=== PATIENT | female | born 1965 | race African-American/Black ===

== ENCOUNTER 2018-09-01 00:33 | Inpatient (IN) | payer OTHER ==
[2018-09-01 01:34] LABS: Absolute Lymphocytes (CBC) 2.7 K/uL (0.7-4.9); Absolute Monocytes 0.9 K/uL (0.1-1.3); Absolute Neutrophil 5.8 K/uL (1.8-8.0); Basophils % 0.4 % (0-1.3); Eosinophils % 1.4 % (0-4.4); Hematocrit 30.4 % (36.0-45.0); Lymphocytes % 28.4 % (15.3-44.8); Monocytes % 9.3 % (3.3-12.3); RBC Red Blood Cell Count 3.67 M/uL (3.86-4.86)
[2018-09-01 02:14] LABS: ALT/SGPT 20 U/L (12-78); AST/SGOT 33 U/L (15-37); Albumin 2.7 g/dL (3.4-5.0); Alkaline Phosphatase 56 U/L (45-117); BUN Blood Urea Nitrogen 17 mg/dL (7-18); Bicarbonate 30 mmol/L (21-32); Bilirubin Direct < 0.1 mg/dL (0-0.2); Bilirubin Total 0.2 mg/dL (0.2-1.0); Glucose Level 131 mg/dL (74-106); Protein, Total 9.7 g/dL (6.4-8.2); Sodium Level 139 mmol/L (136-145)
[2018-09-01 02:15] LABS: Magnesium 1.4 mg/dL (1.8-2.4); Potassium 2.5 mmol/L (3.5-5.1)
[2018-09-01] MEDS ORDERED: POTASSIUM 25 MEQ EFFERV TAB ONE (02:32)
[2018-09-01] MEDS ORDERED: NA CHLORIDE 0.9% 500 ML ONE (02:32)
[2018-09-01] MEDS ORDERED: MAGNESIUM SULFATE 1 gm IVPB 1 GM/100 ML BAG IV ONE ×2 (02:32→09:19)
[2018-09-01] MEDS ORDERED: KCL 20 MEQ/100 mL IVPB 20 MEQ/100 ML BAG IV ONE (02:33)
--- NOTE | 2018-09-01 02:41 | ER ---
Nurse's Notes [facility] Name: Denise Bardales Age: 53 yrs Sex: Female : 1965 Arrival Date: 09/01/2018 Time: 00:42 Bed 5 Private MD: Diagnosis: Hypomagnesemia;Hypokalemia Presentation: 09/01 00:49 Presenting complaint: Patient states: had routine blood work today and was notified she bb needed to go to the ED for low potassium it was 2.6. Pt also states she has been having palpitations and diarrhea for some time. Transition of care: patient was not received from another setting of care. Onset of symptoms was September 01, 2018. Risk Assessment: Do you want to hurt yourself or someone else? Patient reports no desire to harm self or others. Initial Sepsis Screen: Does the patient meet any 2 criteria? No. Patient's initial sepsis screen is negative. Does the patient have a suspected source of infection? No. Patient's initial sepsis screen is negative. Care prior to arrival: None. 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 - Social history:: Smoking status: Patient/guardian denies using tobacco. - Ebola Screening: : No symptoms or risks identified at this time. Screenin:05 Abuse screen: Denies threats or abuse. Denies injuries from another. Nutritional ed1 screening: No deficits noted. Tuberculosis screening: No symptoms or risk factors identified. Fall Risk None identified. Assessment: 02:05 General: Appears in no apparent distress. Behavior is calm, cooperative, Pt states "My ed1 doctors office called me late this evening and said I needed to go to the ER because my potassium level was low.". Pain: Denies pain. Neuro: Level of Consciousness is awake, alert, obeys commands, Oriented to person, place, time, situation. Cardiovascular: Denies chest pain, Heart tones S1 S2 present. Respiratory: Airway is patent Respiratory effort is even, unlabored, Respiratory pattern is regular, symmetrical, Breath sounds are clear bilaterally. Denies cough, shortness of breath. GI: No signs and/or symptoms were reported involving the gastrointestinal system. : No signs and/or symptoms were reported regarding the genitourinary system. EENT: No signs and/or symptoms were reported regarding the EENT system. Derm: Skin is intact, is healthy with good turgor, Skin is dry, Skin is normal, Skin temperature is warm. Musculoskeletal: Circulation, motion, and sensation intact. Range of motion: intact in all extremities. 03:36 Reassessment: Patient appears in no apparent distress at this time. No changes from ed1 previously documented assessment. Patient and/or family updated on plan of care and expected duration. Pain level reassessed. Patient is alert, oriented x 3, equal unlabored respirations, skin warm/dry/pink. Patient denies pain at this time. Vital Signs: 00:54 BP 184 / 91; Pulse 108; Resp 18 S; Temp 98.9(O); Pulse Ox 99% on R/A; Weight 117.93 kg bb (R); Height 5 ft. 2 in. (157.48 cm) (R); Pain 0/10; 03:36 BP 153 / 81; Pulse 90; Resp 16; Temp 98.4(O); Pulse Ox 97% on R/A; Pain 0/10; ed1 00:54 Body Mass Index 47.55 (117.93 kg, 157.48 cm) bb ED Course: 00:42 Patient arrived in ED. es 00:46 Jacqui Alves FNP-C is PHCP. snw 00:47 Jayde Tomlin MD is Attending Physician. snw 00:51 Triage completed. bb 00:54 Arm band placed on Patient placed in an exam room, on a stretcher. bb 01:07 Eileen Wayne, TANMAY is Primary Nurse. ed1 02:05 Patient has correct armband on for positive identification. Placed in gown. Bed in low ed1 position. Call light in reach. 02:05 Initial lab(s) drawn, by me, sent to lab. Inserted saline lock: 22 gauge in left ed1 antecubital area, using aseptic technique. Blood collected. 02:39 Vj Ashley MD is Hospitalizing Provider. snw 03:47 No provider procedures requiring assistance completed. Patient admitted, IV remains in ed1 place. intact, No redness/swelling at site. Administered Medications: 02:43 Drug: NS 0.9% 500 ml Route: IV; Rate: bolus; Site: left antecubital; ed1 03:46 Follow up: IV Status: Infusion continued upon admission ed1 02:44 Drug: Magnesium Sulfate 1 grams Route: IVPB; Infused Over: 1 hrs; Site: left ed1 antecubital; 03:33 Follow up: Response: No adverse reaction; IV Status: Completed infusion; IV Intake: [id number] 02:44 Drug: Potassium Effervescent Tablet 50 mEq Route: PO; ed1 03:33 Follow up: Response: No adverse reaction ed1 02:44 Drug: Potassium Chloride 20 mEq Route: IV; Rate: calculated rate; Site: left ed1 antecubital; 03:47 Follow up: IV Status: Infusion continued upon admission ed1 Intake: 03:33 IV: 50ml; Total: 50ml. ed1 Outcome: 02:39 Decision to Hospitalize by Provider. snw 03:48 Admitted to Tele accompanied by tech, via wheelchair, with chart, Report called to ed1 TANMAY Bello 03:48 Condition: stable 03:48 Discharge instructions given to patient, Instructed on the need for admit, Demonstrated understanding of instructions. 03:48 Patient left the ED. ed1 Signatures: Jacqiu Alves, LOCATION AND MEASUREMENT TECHNICIAN-C LOCATION AND MEASUREMENT TECHNICIAN-Csnw Christi Lujan Brenda, RN RN Eileen Pastor RN RN ed1
--- NOTE | 2018-09-01 02:41 | EDPHYS ---
Physician Documentation [facility] Name: Denise Bardales Age: 53 yrs Sex: Female : 1965 Arrival Date: 09/01/2018 Time: 00:42 Bed 5 Private MD: ED Physician Jayde Tomlin HPI: 09/01 01:05 This 53 yrs old Black Female presents to ER via Ambulatory with complaints of Low K+. snw 01:05 Onset: The symptoms/episode began/occurred acutely. Associated signs and symptoms: snw Pertinent positives: diarrhea. Modifying factors: The patient symptoms are alleviated by nothing. It is unknown whether or not the patient has had similar symptoms in the past. The patient has been recently seen by a physician: the patient's primary care provider, routine bloodwork performed. Pt states she got a call to come to ED for potassium of 2.6. 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 - Social history:: Smoking status: Patient/guardian denies using tobacco. - Ebola Screening: : No symptoms or risks identified at this time. ROS: 01:05 Eyes: Negative for injury, pain, redness, and discharge, ENT: Negative for injury, snw pain, and discharge, Neck: Negative for injury, pain, and swelling, Cardiovascular: Negative for chest pain, palpitations, and edema, Respiratory: Negative for shortness of breath, cough, wheezing, and pleuritic chest pain. 01:05 Back: Negative for injury and pain, : Negative for injury, bleeding, discharge, and swelling, MS/Extremity: Negative for injury and deformity, Skin: Negative for injury, rash, and discoloration, Neuro: Negative for headache, weakness, numbness, tingling, and seizure. 01:05 Constitutional: Positive for body aches. 01:05 Abdomen/GI: Positive for diarrhea. Exam: 01:03 Constitutional: This is a well developed, obese patient who is awake, alert, and in no snw acute distress. Head/Face: Normocephalic, atraumatic. Eyes: Pupils equal round and reactive to light, extra-ocular motions intact. Lids and lashes normal. Conjunctiva and sclera are non-icteric and not injected. Cornea within normal limits. Periorbital areas with no swelling, redness, or edema. ENT: Nares patent. No nasal discharge, no septal abnormalities noted. Tympanic membranes are normal and external auditory canals are clear. Oropharynx with no redness, swelling, or masses, exudates, or evidence of obstruction, uvula midline. Mucous membranes moist. Neck: Trachea midline, no thyromegaly or masses palpated, and no cervical lymphadenopathy. Supple, full range of motion without nuchal rigidity, or vertebral point tenderness. No Meningismus. Chest/axilla: Normal chest wall appearance and motion. Nontender with no deformity. No lesions are appreciated. Cardiovascular: Regular rate and rhythm with a normal S1 and S2. No gallops, murmurs, or rubs. Normal PMI, no JVD. No pulse deficits. Respiratory: Lungs have equal breath sounds bilaterally, clear to auscultation and percussion. No rales, rhonchi or wheezes noted. No increased work of breathing, no retractions or nasal flaring. 01:03 Back: No spinal tenderness. No costovertebral tenderness. Full range of motion. Skin: Warm, dry with normal turgor. Normal color with no rashes, no lesions, and no evidence of cellulitis. MS/ Extremity: Pulses equal, no cyanosis. Neurovascular intact. Full, normal range of motion. Neuro: Awake and alert, GCS 15, oriented to person, place, time, and situation. Cranial nerves II-XII grossly intact. Motor strength 5/5 in all extremities. Sensory grossly intact. Cerebellar exam normal. Normal gait. Psych: Awake, alert, with orientation to person, place and time. Behavior, mood, and affect are within normal limits. 01:03 Abdomen/GI: Inspection: abdomen appears normal, Bowel sounds: normal, Palpation: abdomen is soft and non-tender. Vital Signs: 00:54 BP 184 / 91; Pulse 108; Resp 18 S; Temp 98.9(O); Pulse Ox 99% on R/A; Weight 117.93 kg bb (R); Height 5 ft. 2 in. (157.48 cm) (R); Pain 0/10; 03:36 BP 153 / 81; Pulse 90; Resp 16; Temp 98.4(O); Pulse Ox 97% on R/A; Pain 0/10; ed1 00:54 Body Mass Index 47.55 (117.93 kg, 157.48 cm) bb MDM: 00:58 Patient medically screened. snw 02:38 Data reviewed: vital signs, nurses notes. Data interpreted: Pulse oximetry: on room air snw is 99 %. Interpretation: normal. Counseling: I had a detailed discussion with the patient and/or guardian regarding: the historical points, exam findings, and any diagnostic results supporting the discharge/admit diagnosis, lab results, the need for further work-up and treatment in the hospital. Physician consultation: Vj Ashley MD was called at 02:38, was contacted at 02:38, regarding admission, to the telemetry unit. 02 00:54 Order name: Basic Metabolic Panel; Complete Time: 02:16 snw 09/01 00:54 Order name: CBC with Diff; Complete Time: 01:46 snw 09/01 00:54 Order name: Creatinine for Radiology; Complete Time: 01:51 snw 09/01 00:54 Order name: Hepatic Function; Complete Time: 02:16 snw 09/01 00:54 Order name: Magnesium; Complete Time: 02:16 snw 09/01 00:54 Order name: IV Saline Lock; Complete Time: 02:00 snw 09/01 00:54 Order name: Labs collected and sent; Complete Time: 02:00 snw 09/01 00:58 Order name: EKG; Complete Time: 00:59 snw 09/01 00:58 Order name: EKG - Nurse/Tech; Complete Time: 01:59 snw Administered Medications: 02:43 Drug: NS 0.9% 500 ml Route: IV; Rate: bolus; Site: left antecubital; ed1 03:46 Follow up: IV Status: Infusion continued upon admission ed1 02:44 Drug: Magnesium Sulfate 1 grams Route: IVPB; Infused Over: 1 hrs; Site: left ed1 antecubital; 03:33 Follow up: Response: No adverse reaction; IV Status: Completed infusion; IV Intake: [id number] 02:44 Drug: Potassium Effervescent Tablet 50 mEq Route: PO; ed1 03:33 Follow up: Response: No adverse reaction ed1 02:44 Drug: Potassium Chloride 20 mEq Route: IV; Rate: calculated rate; Site: left ed1 antecubital; 03:47 Follow up: IV Status: Infusion continued upon admission ed1 Disposition: 09/01/18 02:39 Hospitalization ordered by Vj Ashley for Observation. Preliminary diagnosis are Hypomagnesemia, Hypokalemia. - Bed requested for Telemetry/MedSurg (observation). - Status is Observation. ed1 - Condition is Stable. - Problem is new. - Symptoms are unchanged. UTI on Admission? No Addendum: 09/07/2018 22:50 Co-signature as Attending Physician, Jayde Tomlin MD. m a2 Signatures: Dispatcher [employer] EDMT Jacqui Alves, CONTRACT ATTORNEY-C CONTRACT ATTORNEY-Csnw Chiquita Patterson RN RN bb Eileen Wayne RN RN ed1 Jayde Tomlin MD MD tx2 Corrections: (The following items were deleted from the chart) 09/01 01:59 00:54 IV Saline Lock ordered. w ed1 02:43 02:39 Hospitalization Ordered by Vj Ashley MD for Observation. Preliminary bb diagnosis is Hypomagnesemia; Hypokalemia. Bed requested for Telemetry/MedSurg (observation). Status is Observation. Condition is Stable. Problem is new. Symptoms are unchanged. UTI on Admission? No. snw 03:48 02:43 09/01/2018 02:39 Hospitalization Ordered by Vj Ashley MD for Observation. ed1 Preliminary diagnosis is Hypomagnesemia; Hypokalemia. Bed requested for Telemetry/MedSurg (observation). Status is Observation. Condition is Stable. Problem is new. Symptoms are unchanged. UTI on Admission? No. bb
--- NOTE | 2018-09-01 02:48 | P.HP ---
Certification for Inpatient Patient admitted to: Observation With expected LOS: <2 Midnights Practitioner: I am a practitioner with admitting privileges, knowledge of patient current condition, hospital course, and medical plan of care. Services: Services provided to patient in accordance with Admission requirements found in Title 42 Section 412.3 of the Code of Federal Regulations Patient History Date of Service: 09/01/18 Reason for admission: hypokalemia History of Present Illness: Ms Bardales is a 53 years old woman with history of DM II, CKD, HTN, who is followed up by Dr Suarez. She had a lab work done recently, and today she was called by Dr Suarez because his potassium and magnesium were low. The patient states that has had diarrhea and palpitations for a few month already. She also believe that diarrhea is a side effect of metformin. She denied fever, chills, abdominal pain, nausea or vomiting. Lab work remarkable for potassium level 2.5 , Magnesium 1.4, Creatinine 1.58. She denied chest pain or SOB. Allergies aspirin Adverse Reaction (Intermediate, Verified 05/02/12 20:57) Nausea/Vomiting Home medications list reviewed: Yes Home Medications: Amlodipine [Norvasc*] 5 mg PO DAILY 10/13/13 Carvedilol [Coreg*] 25 mg PO BID 10/13/13 Clonidine HCl [Catapres*] 0.2 mg PO TID 10/13/13 Lisinopril/Hydrochlorothiazide [Zestoretic 20-12.5 mg Tablet] 1 each PO BID 08/27 Ciprofloxacin HCl [Cipro 250 MG Tablet*] 250 mg PO BID #10 tab 10/15/13 Insulin Detemir [Levemir*] 20 units SQ BIDWM #0 ml 10/15/13 Simvastatin [Zocor*] 20 mg PO BEDTIME #30 tablet 10/15/13 Sucralfate [Carafate*] 1 gm GT QID #0 ucup 10/15/13 - Past Medical/Surgical History Diabetic: No -: HTN -: left eye keratoconus -: anxiety -: CKD Past Surgical History: Reviewed- Non-Contributory - Family History Family History: Reviewed- Non-Contributory - Social History Smoking Status: Former smoker Alcohol use: No CD- Drugs: No Caffeine use: No Place of Residence: Home Review of Systems 10-point ROS is otherwise unremarkable Physical Examination - Physical Exam General: Alert, In no apparent distress HEENT: Atraumatic, PERRLA, Mucous membr. moist/pink, EOMI, Sclerae nonicteric Neck: Supple, 2+ carotid pulse no bruit, No LAD, Without JVD or thyroid abnormality Respiratory: Clear to auscultation bilaterally, Normal air movement Cardiovascular: Regular rate/rhythm, Normal S1 S2 Gastrointestinal: Normal bowel sounds, No tenderness Musculoskeletal: No tenderness Integumentary: No rashes Neurological: Normal gait, Normal speech, Normal strength at 5/5 x4 extr, Normal tone, Normal affect Lymphatics: No axilla or inguinal lymphadenopathy - Studies Laboratory Data (last 24 hrs) 09/01/18 01:20: Creatinine 1.58 H 09/01/18 01:20: WBC 9.6, Hgb 10.1 L, Hct 30.4 L, Plt Count 525 H 09/01/18 01:20: Sodium 139, Potassium 2.5 L*, BUN 17, Creatinine 1.54 H, Glucose 131 H, Magnesium 1.4 L*, Total Bilirubin 0.2, AST 33, ALT 20, Alkaline Phosphatase 56 Assessment and Plan - Problems (Diagnosis) (1) Hypokalemia Current Visit: Yes Status: Acute (2) Hypomagnesemia Current Visit: Yes Status: Acute (3) Acute kidney injury superimposed on CKD Current Visit: Yes Status: Acute (4) Diabetes mellitus Current Visit: Yes Status: Acute Qualifiers: Diabetes mellitus type: type 2 Diabetes mellitus jail insulin use: with jail use Diabetes mellitus complication status: with kidney complications Diabetes mellitus complication detail: with chronic kidney disease Chronic kidney disease stage: stage 3 (moderate) Qualified Code(s): E11.22 - Type 2 diabetes mellitus with diabetic chronic kidney disease; N18.3 - Chronic kidney disease, stage 3 (moderate); Z79.4 - USP (current) use of insulin - Plan The patient will be admitted to the hospital under observation in order to replace electrolyte. Will continue patassium and magnesium infusion by protocol. - Advance Directives Does patient have a Living Will: No Does patient have a Durable POA for Healthcare: No - Code Status/Comfort Care Code Status Assessed: Yes Code Status: Full Code
[2018-09-01] MEDS ORDERED: ONDANSETRON 4 MG/2 ML VIAL IV PRN (04:29)
[2018-09-01] MEDS: NA CHLORIDE 0.9% 1,000 ML IV SCH ×2 (06:08→14:29)
[2018-09-01 06:23] VITALS: BMI 43.9
[2018-09-01] MEDS: INSULIN -REGULAR HUMAN 50 UNIT/0.5 ML ML SQ SCH ×4 (07:30→21:00)
[2018-09-01 08:37] LABS: Magnesium 1.8 mg/dL (1.8-2.4)
[2018-09-01 08:39] LABS: Potassium 2.9 mmol/L (3.5-5.1)
--- NOTE | 2018-09-01 08:47 | EKG ---
Test Date: 2018-09-01 Test Time: 01:54:35 Primary Counselor: ROBERTA MEASUREMENT RESULTS: Intervals: Rate: 105 [place]: 184 QRSD: 98 QT: 358 QTc: 473 [place]: P: 51 [place]: 184 QRS: 7 T: 72 INTERPRETIVE STATEMENTS: Sinus tachycardia Nonspecific T wave abnormality Abnormal ECG Compared to ECG 10/13/2013 15:15:57 T-wave abnormality now present Sinus rhythm no longer present ST (T wave) deviation no longer present Possible ischemia no longer present Prolonged QT interval no longer present Electronically Signed On 09-01-18 08:45:54 CONTRACTING OFFICER by Francois Crews
[2018-09-01 09:00] LABS: Potassium 2.9 mmol/L (3.5-5.1)
[2018-09-01] MEDS: FOLIC ACID 1 MG TABLET PO SCH (09:00)
[2018-09-01] MEDS: KCL 20 MEQ/100 mL IVPB 20 MEQ/100 ML BAG IV SCH ×3 (09:39→13:39)
[2018-09-01] MEDS: ENOXAPARIN 40 MG/0.4 ML SQ SCH (09:40)
[2018-09-01] MEDS: AMLODIPINE 10 MG TAB PO SCH (10:14)
[2018-09-01] MEDS: LISINOPRIL 20 MG TAB PO SCH (10:15)
[2018-09-01 10:28] VITALS: O2SAT 98
--- NOTE | 2018-09-01 15:49 | P.PN ---
Subjective Date of Service: 09/01/18 Primary Care Provider: Nephrology-Dr. Suarez Chief Complaint: hypokalemia Subjective: Improving, Doing well Physical Examination - Vital Signs Temperature: 97.1 F Blood Pressure: 159/82 Pulse: 86 Respirations: 18 Pulse Ox (%): 99 - Physical Exam General: Alert, In no apparent distress, Oriented x3, Cooperative HEENT: Atraumatic Neck: Supple Respiratory: Clear to auscultation bilaterally, Normal air movement Cardiovascular: Normal pulses, Regular rate/rhythm Gastrointestinal: Normal bowel sounds, Soft and benign, Non-distended Neurological: Normal speech, Normal strength at 5/5 x4 extr, Normal tone, Normal affect - Studies Laboratory Data (last 24 hrs) 09/01/18 01:20: Creatinine 1.58 H 09/01/18 01:20: WBC 9.6, Hgb 10.1 L, Hct 30.4 L, Plt Count 525 H 09/01/18 01:20: Sodium 139, Potassium 2.5 L*, BUN 17, Creatinine 1.54 H, Glucose 131 H, Magnesium 1.4 L*, Total Bilirubin 0.2, AST 33, ALT 20, Alkaline Phosphatase 56 Medications List Reviewed: Yes Assessment & Plan Discharge Plan: Home Plan to discharge in: 24 Hours Physician Review Additional Text: Impression: Hypokalemia Hypomagnesia Diabetes mellitus type 2 Acute on chronic renal disease, stage III Hypertension Iron deficiency anemia Obesity, BMI 43 Plan: Hypokalemia: Potassium being replaced. Possible discharge later today if improved. This will need to be monitored closely by nephrology as an outpatient. Recommend to recheck lab-potassium in 1 week. Hypomagnesia: Magnesium being replaced. Possible discharge later today if improved. This will need to be monitored closely by nephrology as an outpatient. Recommend to recheck lab-magnesium in 1 week. Diabetes mellitus type 2: Patient with diabetes. Will recommend to discontinue metformin due to chronic renal disease. Patient may benefit with glimepiride at discharge. Acute on chronic renal disease, stage III: Stable. Nephrology consulted. Nephrology recommends to discontinue metformin at discharge. Recommend no further use of nonsteroidal anti-inflammatories medications will need to be renally dosed. Recommend to recheck lab-BMP in 1 week. Hypertension: Patient continues with medication. Iron deficiency anemia: Patient continues medication. Obesity, BMI 43: Lifestyle modification education provided. Time Spent Managing Pts Care (In Minutes): 55
[2018-09-01] MEDS: METFORMIN HCL 500 MG TAB PO SCH (16:05)
--- NOTE | 2018-09-01 19:48 | RAD REPORT ---
EXAM DESCRIPTION: CT - Stone Protocol - 09/01/2018 7:18 pm CLINICAL HISTORY: Abdominal pain. COMPARISON: November 2017 TECHNIQUE: Computed axial tomography of the abdomen pelvis was obtained without oral or IV contrast. Lack of IV and oral contrast limits evaluation of solid organs, bowel, and vessels. Coronal reformat adolfo images were obtained and reviewed. All CT scans are performed using dose optimization technique as appropriate and may include automated exposure control or mA/KV adjustment according to patient size. FINDINGS: The left kidney is enlarged containing multiple calcifications up to a 2.7 centimeters. Lo w density areas are scattered throughout the left kidney. Hydronephrosis is not noted. This is compat ible with Xanthogranulomatous pyelonephritis A 1 millimeter calculus is present at the left UVJ. A right renal calculus is not seen. Ureteral calculus is not visualized. A bladder calculus is not The liver, spleen, pancreas appear grossly normal. A small left adrenal adenoma. There is laxity of the anterior abdominal wall with diastases of the rectus abdominis muscles 11 centimeter mass abuts the uterine fundus. It contains calcification. The endometrial stripe is thi ckened. There is no evidence of diverticulitis. Mild abdominal lymphadenopathy present IMPRESSION: Left Xanthogranulomatous pyelonephritis 1 millimeter nonobstructing calculus left UVJ 11 centimeter mass which abuts the uterine fundus appears slightly enlarged compared to the prior exa m. Most likely represents a subserosal fibroid. Ultrasound is recommended
--- NOTE | 2018-09-01 19:51 | RAD REPORT ---
EXAM DESCRIPTION: US - Renal Ultrasound-Complete - 09/01/2018 7:16 pm CLINICAL HISTORY: . Abdominal pain COMPARISON: August 2017. FINDINGS: The right kidney measures 12 centimeters with a mildly increased echotexture. Hydronephros is is not present. The left kidney measures 13 centimeters. It contains multiple calculi. Hydronephrosis is not seen. Di ffuse hypoechoic areas are scattered throughout the left kidney. This is compatible with Xanthogranul omatous pyelonephritis No gross abnormality of bladder noted IMPRESSION: Left Xanthogranulomatous pyelonephritis Increased renal echotexture consistent with parenchymal disease
[2018-09-01] MEDS: ACETAMINOPHEN 500 MG TAB PO PRN (21:16)
[2018-09-01] MEDS: ATORVASTATIN 20 MG TAB PO SCH (21:19)
[2018-09-01 21:46] LABS: Phosphorus 2.1 mg/dL (2.5-4.9)
[2018-09-01 21:50] LABS: Urine Appearance CLOUDY; Urine Bilirubin NEGATIVE (NEG); Urine Blood 2+ (NEG); Urine Color YELLOW; Urine Glucose NEGATIVE (NEG); Urine Protein 3+ (NEG); Urine Specific Gravity 1.015 (1.005-1.030); Urine Urobilinogen 0.2 mg/dL (0.2-1.0)
[2018-09-01 21:58] LABS: Barbiturates NEGATIVE (NEGATIVE); Benzodiazepines NEGATIVE (NEGATIVE); Cocaine NEGATIVE (NEGATIVE); METHAMPHETAM NEGATIVE (NEGATIVE); Methadone NEGATIVE (NEGATIVE); Opiates NEGATIVE (NEGATIVE); Phencyclidine NEGATIVE (NEGATIVE); THC Cannibis NEGATIVE (NEGATIVE)
[2018-09-01 22:11] LABS: Urine Bacteria 20-50 /HPF (<20); Urine Culture Reflex Order REFLEXED; Urine Mucus 2+ /HPF (NONE SEEN)
--- NOTE | 2018-09-01 22:43 | CON ---
Date of Consultation: 09/01/2018 Chief Complaint: [id number] kidney injury. History Of Present Illness: The patient was found to have elevated BUN and creatinine. She has underlying chronic kidney disease stage 3. She was found to have severe hypokalemia, hypomagnesemia. Outpatient blood work was obtained and potassium level was 2.6. The patient was referred to emergency room for evaluation and treatment. The patient has history of chronic kidney disease stage 3. There is history of diabetic kidney disease, hypertensive kidney disease, previous history of kidney stones. The patient has moderately severe acute on chronic kidney injury. Creatinine level is 1.4 and BUN is 15. Previously, creatinine baseline was 1.13. The patient is treated with potassium replacement. Potassium level was 2.6 and improved to 2.9. The patient is receiving potassium supplement. The patient has diabetic kidney disease. Glucose was elevated up to 397. I discussed with the patient and with attending that she cannot take metformin in view of chronic kidney disease due to the risk of lactic acidosis. Review of Systems: Constitutional: Denies fever, chills. Eyes: Denies vision changes. Ears, Nose, Mouth, and Throat: Denies sore throat, earaches. Respiratory: Denies PND, orthopnea. Cardiovascular: Denies chest pain, palpitation. GI: Denies nausea, vomiting. : Denies dysuria, hematuria. Musculoskeletal: Denies muscle aches or joint swelling. All other systems reviewed and all are negative. Past Medical History: Hypertension, left eye Keratoconus, anxiety, chronic kidney disease stage 3, diabetes mellitus with renal manifestation, obesity, kidney stones, history of urinary tract infection, hyperlipidemia, peptic ulcer disease, reflux. History of renal cyst, kidney stone. The patient previously was evaluated for possible kidney mass. 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 She had CT scan done in 2018. There was no hydronephrosis. There was enlargement of the pyramids with large bulky calcification present up to 3.5 cm in size. No obstructing ureteral calculi. The patient was found to have a large exophytic fibroid and was previously referred to [facility]. The patient was found to have previously medullary sponge kidney type changes on CT scan with medullary nephrocalcinosis and was to follow up with [facility] [employer] to rule out malignancy although patient is noncompliant and since 2018 she has not come for followup. Social History: Denies tobacco, alcohol, or illicit drugs. Family History: No kidney disease in the family. Physical Examination: General: The patient is awake, alert, follows commands. Eyes: Anicteric sclerae. EOMI. Ears, Nose, Mouth, and Throat: Oral mucosa moist. No pallor. Neck: Supple. No JVD. No bruits. Lungs: Clear to auscultation bilaterally. Heart: S1, S2. Abdomen: Soft, benign, not tender. Extremities: No edema. Laboratory Data: Blood work showed sodium 140, potassium 2.9, chloride 104, CO2 of 32, BUN 15, creatinine 1.4, glucose 115, calcium 9.3. Impression And Plan: 1. Chronic kidney disease stage 3, diabetes mellitus with renal manifestation. Avoid metformin. I discussed case with the patient and attending. 2. Hypertension. Continue blood pressure medication. 3. Severe hypokalemia. The plan is to check renal ultrasound to rule out obstructive uropathy. Continue replacement. Check magnesium level and replace magnesium as needed. The patient may need workup for hypokalemia. 4. The patient has history of proteinuria. Continue workup for proteinuria with urine protein electrophoresis. 5. History of kidney stones. CT scan without contrast will be done to rule out active kidney stone. LANA/MARTIN Voice ID: [id number] Report ID: [id number] MTDD
[2018-09-02 04:42] LABS: Absolute Lymphocytes (CBC) 2.5 K/uL (0.7-4.9); Absolute Monocytes 0.7 K/uL (0.1-1.3); Absolute Neutrophil 4.9 K/uL (1.8-8.0); Basophils % 0.4 % (0-1.3); Eosinophils % 2.9 % (0-4.4); Hematocrit 27.1 % (36.0-45.0); Lymphocytes % 29.5 % (15.3-44.8); MPV 8.1 fL (7.6-11.3); Monocytes % 8.5 % (3.3-12.3); RBC Red Blood Cell Count 3.24 M/uL (3.86-4.86)
[2018-09-02 05:22] LABS: Potassium 2.7 mmol/L (3.5-5.1)
[2018-09-02] MEDS: KCL 20 MEQ/100 mL IVPB 20 MEQ/100 ML BAG IV SCH ×3 (06:04→12:53)
[2018-09-02] MEDS: INSULIN -REGULAR HUMAN 50 UNIT/0.5 ML ML SQ SCH ×4 (07:30→21:00)
[2018-09-02] MEDS: METFORMIN HCL 500 MG TAB PO SCH (08:04)
[2018-09-02] MEDS: AMLODIPINE 10 MG TAB PO SCH (08:06)
[2018-09-02] MEDS: FERROUS SULFATE 325 MG TAB PO SCH (08:06)
[2018-09-02] MEDS: LISINOPRIL 20 MG TAB PO SCH (08:06)
[2018-09-02] MEDS: ENOXAPARIN 40 MG/0.4 ML SQ SCH (08:07)
[2018-09-02] MEDS: FOLIC ACID 1 MG TABLET PO SCH (08:07)
[2018-09-02] MEDS: ACETAMINOPHEN 500 MG TAB PO PRN ×2 (08:56→23:04)
[2018-09-02] MEDS: CEFTRIAXONE/SWI 2gm 2 GM/20 ML SYR IV SCH (10:14)
[2018-09-02] MEDS ORDERED: FUROSEMIDE 40 MG/4 ML VIAL ONE (10:51)
--- NOTE | 2018-09-02 12:23 | RAD REPORT ---
EXAM DESCRIPTION: NM - Kidney Imag W/Flow Func Wop - 09/02/2018 11:53 am CLINICAL HISTORY: Left renal calculus. Renal failure COMPARISON: September 01, 2018 cat scan TECHNIQUE: 10.2 millicuries technetium MDP 3 administered intravenously. Perfusion, concentration an d excretion images of the kidneys obtained. 40 milligrams Lasix administered intravenously 10 minutes into the exam. FINDINGS: Left renal peak activity 9.7 minutes. Right renal peak activity 6.9 minutes. Left renal capital T 1/2 equals 11.3 minutes. Right renal capital T 1/2 equals 5.1 minute Left renal activity a 20 minutes equals 48%. Rght renal activity at 20 minutes equals 37% There is relatively symmetric perfusion to each kidney. The concentration of radiotracer within the l eft kidney is mildly diminished. Mildly delayed excretion left kidney. No hydronephrosis IMPRESSION: Mildly to moderately diminished function of the left kidney. No obstruction
[2018-09-02] MEDS: POTASSIUM 25 MEQ EFFERV TAB PO SCH ×2 (12:53→21:22)
--- NOTE | 2018-09-02 13:01 | RAD REPORT ---
EXAM DESCRIPTION: US - Pelvis Complete - 09/02/2018 12:47 pm CLINICAL HISTORY: evaluate 11 cm mass to the left side, pos. fibroid Pelvic pain. COMPARISON: [facility] Protocol dated 09/01/2018 FINDINGS: The patient refused transvaginal ultrasound significantly limits the study. The uterus measures 8.2 x 9.0 x 6.1 cm. Endometrial stripe measures 5 mm. A protuberant area is seen in the fundus of the uterus anteriorly measuring 3.6 x 4.0 x 3.2 cm which probably represents a subse charisse fibroid. Full details are limited on transabdominal ultrasound. No significant pelvic ascites. Neither ovary well seen likely due to bowel gas shadowing. IMPRESSION: The uterus appears enlarged with a protuberant region in the fundus as detailed, probabl y representing a fibroid. Full assessment is quite limited as the patient refused transvaginal ultras ound. Neither ovary is well seen due to bowel gas. No pelvic ascites.
--- NOTE | 2018-09-02 13:20 | CON ---
History Of Present Illness: A 53-year-old lady with history of diabetes type 2 , chronic kidney disease, hypertension, followed by Dr. Suarez. She came in for hypokalemia. Her lab work was 2.5 in terms of potassium. She knows she had a history of kidney stones, but never really did anything about it, nothing was recommended for her, but she had a CAT scan showing classic bear paw deformity in the left kidney with large stones, kidney is enlarged on the left with multiple calcifications, largest one 2.7 cm and low-density areas scattered throughout the kidneys in a bear paw deformity compatible with xanthogranulomatous pyelonephritis, XGP. She has no fever, no elevated white count now. She does have some left flank pain. She may also have a 1-mm stone at left UVJ with no hydronephrosis. She has no right renal calculi, no bladder calculi, no ureteral calculi. She has a small left adrenal adenoma. She has some laxity of the anterior abdominal wall consistent with diastasis of the rectus abdominis muscle. She has an 11 cm mass abutting the uterine fundus containing calcification. She is receiving IV potassium now to equalize her level. I am going to go ahead and order a renal nuclear functional scan to assess the function of the left kidney versus the right kidney. Her GFR is low at 50. I would like to know what the chances he may end up on dialysis after the left nephrectomy. Allergies: TO ASPIRIN, CAUSES NAUSEA AND VOMITING. Home Medications: Reviewed. Medications include amlodipine, Norvasc 5 mg daily , carvedilol, Coreg 25 mg p.o. b.i.d., clonidine 0.2 mg p.o. t.i.d., lisinopril and hydrochlorothiazide 20/12.5 mg 1 p.o. b.i.d., Cipro 1 p.o. b.i.d., insulin 20 units subcutaneously b.i.d. Wednesdays and Mondays, Zocor 20 mg p.o. at bedtime, sucralfate or Carafate 1 g GT q.i.d. Past Medical History: Kidney stones, history of diabetes, hypertension, left eye keratoconus, anxiety, and chronic kidney disease. Past Surgical History: Reviewed. Family History: Reviewed. Social History: Former smoker. No alcohol use. No drug use. No caffeine use. Resides at home. Physical Examination: General: Alert, oriented, no acute distress. HEENT: Atraumatic and normocephalic. Neck: Supple. Respiratory: Clear. Cardiovascular: Normal S1 and S2. Gastrointestinal: Normal bowel sounds. There was some left flank tenderness, mild. Musculoskeletal: No tenderness. Skin: No rashes. Neurological: Normal gait. Laboratory Studies: CBC, white count 9.6, H and H of 10 and 30, platelet count 525. Sodium 139, potassium 2.5 low, BUN 17, CR__ glucose 131, magnesium 1.4, total bilirubin 0.2, AST 33, ALT 20, alkaline phosphatase 56. A CT scan reviewed. Ultrasound reviewed. 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 The patient was on Cipro at home, on IV antibiotics since she has pain. She has hypokalemia and has been replaced. Hypomagnesemia, being replaced. Acute kidney injury superimposed on chronic kidney disease, diabetes mellitus. Plan: Plan is for renal scan to assess function. May go ahead and get a cardiac clearance in her since most likely she is going to be needing surgery in the future. FE/MARTIN Voice ID: [id number] Report ID: [id number] MTDWilson
--- NOTE | 2018-09-02 13:29 | ECHO ---
HEIGHT: 5 ft 3 in WEIGHT: 247 lb 12.8 oz DATE OF STUDY: 09/02/[address]: Fidel Garcia MD 2-DIMENSIONAL: YES M.MODE: YES DOPPLER: YES COLOR FLOW: YES TDS: YES PORTABLE: DEFINITY: BUBBLE STUDY: DIAGNOSIS: HYPERTENSION CARDIAC HISTORY: CATHERIZATION: NO SURGERY: NO PROSTHETIC VALVE: NO PACEMAKER: NO MEASUREMENTS (cm) DIASTOLIC (NORMALS) SYSTOLIC (NORMALS) IVSd 1.2 (0.6-1.2) LA Diam 3.5 (1.9-4.0) LVEF 72% LVIDd 3.1 (3.5-5.7) LVIDs 1.8 (2.0-3.5) %FS 40% LVPWd 1.3 (0.6-1.2) Ao Diam 2.5 (2.0-3.7) 2 DIMENSIONAL ASSESSMENT: RIGHT ATRIUM: NORMAL LEFT ATRIUM: NORMAL RIGHT VENTRICLE: NORMAL LEFT VENTRICLE: LEFT VENTRICULAR HYPERTROPHY TRICUSPID VALVE: NORMAL MITRAL VALVE: NORMAL PULMONIC VALVE: NORMAL AORTIC VALVE: NORMAL PERICARDIAL EFFUSION: NONE AORTIC ROOT: NORMAL LEFT VENTRICULAR WALL MOTION: NORMAL DOPPLER/COLOR FLOW: NORMAL COMMENTS: NORMAL LEFT VENTRICULAR EJECTION FRACTION. LEFT VENTRICULAR HYPERTROPHY. TECHNOLOGIST: EVAN ABRAHAM
--- NOTE | 2018-09-02 14:26 | CON ---
Chief Complaint: Left lower flank pain. Reason For Consult: Preoperative evaluation for a nephrectomy. History Of Present Illness: Ms. Bardales came to the hospital with flank pain. She has been found to have a mass. I am not sure exactly what the diagnosis is and reports indicate it is a uterine mass. It may be part of the kidney as well, but the plan is to remove the mass. I am asked to evaluate h er before going through surgery. She has never had any problems going through surgery before, never any heart problems. She has longstanding obesity, hypertension, and diabetes. No history of myocard ial infarction, stroke, vascular surgery, blood clots. She has had sections, multigravid. Outpatient Medications: Iron, atorvastatin, amlodipine, metformin, lisinopril, and folic acid. Allergies: SHE REPORTS AN ALLERGY TO ASPIRIN. Physical Examination: General: 5 feet 3 inches, 247 pounds. Alert, oriented, pleasant, not in distress. Lungs: Clear. Heart: Within normal limits. Abdomen: Soft. Extremities: Trace edema. Distal pulses palpable. Diagnostic Data: EKG reveals sinus tachycardia, nonspecific T-wave abnormality. Recommendation: I would recommend we do an echocardiogram. If that does not show any segmental wall motion abnormality or depressed ejection fraction, then she is a low risk for going through surgery. BALDO/MARTIN Voice ID: [id number] Report ID: [id number]
--- NOTE | 2018-09-02 16:00 | P.PN ---
Subjective Date of Service: 09/02/18 Primary Care Provider: Nephrology-Dr. Suarez Chief Complaint: hypokalemia Subjective: Improving Pt is asymptomatic K 2.6 , will start on 50mg po bid elevated BP with hypokalemia will send for renin/rand, cortisol level will send for urine K/Cr ratio and TTKG after renin rand result collected will start on spirnolactone pt refused to dc metformin Physical Examination - Vital Signs Temperature: 97.5 F Blood Pressure: 171/80 Pulse: 80 Respirations: 18 Pulse Ox (%): 96 - Physical Exam General: In no apparent distress, Oriented x3, Obese HEENT: Atraumatic Neck: Supple, JVD not distended, Without JVD or thyroid abnormality Respiratory: Clear to auscultation bilaterally, Normal air movement Cardiovascular: No edema, Normal pulses, Regular rate/rhythm, Normal S1 S2 Gastrointestinal: Normal bowel sounds, Soft and benign - Studies Laboratory Data (last 24 hrs) 09/02/18 04:07: Sodium 139, Potassium 2.7 L*, BUN 11, Creatinine 1.35 H, Glucose 131 H 09/02/18 04:07: WBC 8.4, Hgb 8.9 L, Hct 27.1 L, Plt Count 417 H D 09/01/18 17:55: Phosphorus 2.1 L, Magnesium 2.0 09/01/18 17:55: Potassium 3.4 L Medications List Reviewed: Yes Assessment And Plan - Current Problems (Diagnosis) (1) Acute kidney injury superimposed on CKD Onset Date: 09/02/18 Current Visit: Yes Status: Acute (2) Hypokalemia Onset Date: 09/02/18 Current Visit: Yes Status: Acute - Plan Impression And Plan: Chronic kidney disease stage 3, Cr 1..5 and down to 1.3, baseline ~1.1 renal dose meds Abd CT: no hydro f/u UPC hypokalemia multifactorial, hypomagnesesmia +/- hyperaldo vs hypercortisolism send for TTKG, ur k/cr , renin/rand and cortisol PO K and Mg lisniopril will start on spirnolactone once renin/rand collected less likely due to RTA, serum bicarb 29 DM avoid metformine pt refused to stop Xanthogranulomatosis pylonephritis urology evaluation F/U lasix scan results possible nephrectomy ?
--- NOTE | 2018-09-02 16:17 | P.PN ---
Subjective Date of Service: 09/02/18 Primary Care Provider: Nephrology-Dr. Suarez Chief Complaint: hypokalemia Subjective: Improving Physical Examination - Vital Signs Temperature: 97.5 F Blood Pressure: 171/80 Pulse: 80 Respirations: 18 Pulse Ox (%): 96 - Physical Exam General: Alert, In no apparent distress, Oriented x3, Cooperative HEENT: Atraumatic Neck: Supple Respiratory: Clear to auscultation bilaterally, Normal air movement Cardiovascular: Normal pulses, Regular rate/rhythm Gastrointestinal: Normal bowel sounds, Tenderness (Still with left flank tenderness) Musculoskeletal: No erythema, No tenderness, No warmth Integumentary: No erythema, No warmth, No cyanosis Neurological: Normal speech, Normal strength at 5/5 x4 extr, Normal tone, Normal affect - Studies Laboratory Data (last 24 hrs) 09/02/18 04:07: Sodium 139, Potassium 2.7 L*, BUN 11, Creatinine 1.35 H, Glucose 131 H 09/02/18 04:07: WBC 8.4, Hgb 8.9 L, Hct 27.1 L, Plt Count 417 H D 09/01/18 17:55: Phosphorus 2.1 L, Magnesium 2.0 09/01/18 17:55: Potassium 3.4 L Medications List Reviewed: Yes Assessment & Plan Discharge Plan: Home Plan to discharge in: 24 Hours Physician Review Additional Text: Impression: Hypokalemia, 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 This may be multifactorial. Case discussed with nephrology. Workup for hyperaldosteronism and hypercortisolism. Also need to rule out renal tubular acidosis. Patient had abnormal CT scan showing xanthogranulomatous pyelonephritis. Urology consulted. Urology has started antibiotic therapy. Urology continues to further assess. Patient will likely require nephrectomy in the near future. Continue monitor patient closely. Diabetes mellitus type 2: Patient with diabetes. Will recommend to discontinue metformin due to chronic renal disease. Patient may benefit with glimepiride at discharge. Acute on chronic renal disease, stage III: Stable. Nephrology consulted. Nephrology recommends to discontinue metformin at discharge. Recommend no further use of nonsteroidal anti-inflammatories medications will need to be renally dosed. Recommend to recheck lab-BMP in 1 week. Hypertension: Patient continues with medication. Iron deficiency anemia: Patient continues medication. Obesity, BMI 43: Lifestyle modification education provided. Time Spent Managing Pts Care (In Minutes): 55
[2018-09-02 18:17] LABS: Magnesium 1.6 mg/dL (1.8-2.4); Potassium 3.7 mmol/L (3.5-5.1)
[2018-09-02] MEDS ORDERED: D50W 25 GM/50 ML SYRINGE IV PRN (18:44)
[2018-09-02] MEDS ORDERED: GLUCAGON 1 MG/VIAL IM PRN (18:44)
[2018-09-02] MEDS ORDERED: MAGNESIUM SULFATE 1 gm IVPB 1 GM/100 ML BAG IV ONE (20:00)
[2018-09-02] MEDS: ATORVASTATIN 20 MG TAB PO SCH (21:22)
[2018-09-02] MEDS ORDERED: HYDRALAZINE HCL 20 MG/ML VIAL IV PRN (21:36)
[2018-09-03 04:28] LABS: Magnesium 1.7 mg/dL (1.8-2.4); Potassium 3.1 mmol/L (3.5-5.1)
[2018-09-03] MEDS ORDERED: MAGNESIUM SULFATE 1 gm IVPB 1 GM/100 ML BAG IV ONE (06:00)
[2018-09-03] MEDS ORDERED: POTASSIUM CL SA 10 MEQ TAB PO ONE (06:30)
[2018-09-03] MEDS: INSULIN -REGULAR HUMAN 50 UNIT/0.5 ML ML SQ SCH ×2 (07:30→11:30)
[2018-09-03] MEDS ORDERED: SPIRONOLACTONE 25 MG TABLET PO SCH (09:00)
[2018-09-03 09:32] LABS: Absolute Lymphocytes (CBC) 2.2 K/uL (0.7-4.9); Absolute Monocytes 0.8 K/uL (0.1-1.3); Absolute Neutrophil 5.3 K/uL (1.8-8.0); Basophils % 0.5 % (0-1.3); Eosinophils % 3.2 % (0-4.4); Hematocrit 28.8 % (36.0-45.0); Lymphocytes % 25.8 % (15.3-44.8); MPV 8.2 fL (7.6-11.3); Monocytes % 8.9 % (3.3-12.3); RBC Red Blood Cell Count 3.43 M/uL (3.86-4.86)
[2018-09-03 09:52] LABS: Ferritin 99.7 ng/mL (8-388)
[2018-09-03] MEDS: FERROUS SULFATE 325 MG TAB PO SCH (09:52)
[2018-09-03] MEDS: FOLIC ACID 1 MG TABLET PO SCH (09:52)
[2018-09-03] MEDS: AMLODIPINE 10 MG TAB PO SCH (09:53)
[2018-09-03] MEDS: LISINOPRIL 20 MG TAB PO SCH (09:53)
[2018-09-03] MEDS: POTASSIUM 25 MEQ EFFERV TAB PO SCH (09:54)
[2018-09-03] MEDS: ENOXAPARIN 40 MG/0.4 ML SQ SCH (09:55)
[2018-09-03] MEDS: CEFTRIAXONE/SWI 2gm 2 GM/20 ML SYR IV SCH (09:58)
[2018-09-03 12:39] VITALS: BP 178/91; TEMP 98.2
--- NOTE | 2018-09-03 13:54 | P.DS ---
Admission Date: 09/02/18 Discharge Date: 09/03/18 Primary Care Provider: Nephrology-Dr. Suarez Disposition: ROUTINE DISCHARGE Discharge Condition: GOOD Reason for Admission: hypokalemia Consultations: Nephrology-Dr. Muller Urology-Dr. Vazquez Cardiology-Dr. Garcia Procedures: CT scan: COMPARISON: November 2017 TECHNIQUE: Computed axial tomography of the abdomen pelvis was obtained without oral or IV contrast. Lack of IV and oral contrast limits evaluation of solid organs, bowel, and vessels. Coronal reformatted images were obtained and reviewed. All CT scans are performed using dose optimization technique as appropriate and may include automated exposure control or mA/KV adjustment according to patient size. FINDINGS: The left kidney is enlarged containing multiple calcifications up to a 2.7 centimeters. Low density areas are scattered throughout the left kidney. Hydronephrosis is not noted. This is compatible with Xanthogranulomatous pyelonephritis A 1 millimeter calculus is present at the left UVJ. A right renal calculus is not seen. Ureteral calculus is not visualized. A bladder calculus is not The liver, spleen, pancreas appear grossly normal. A small left adrenal adenoma. There is laxity of the anterior abdominal wall with diastases of the rectus abdominis muscles 11 centimeter mass abuts the uterine fundus. It contains calcification. The endometrial stripe is thickened. There is no evidence of diverticulitis. Mild abdominal lymphadenopathy present IMPRESSION: Left Xanthogranulomatous pyelonephritis 1 millimeter nonobstructing calculus left UVJ 11 centimeter mass which abuts the uterine fundus appears slightly enlarged compared to the prior exam. Most likely represents a subserosal fibroid. Renal US: COMPARISON: August 2017. FINDINGS: The right kidney measures 12 centimeters with a mildly increased echotexture. Hydronephrosis is not present. The left kidney measures 13 centimeters. It contains multiple calculi. Hydronephrosis is not seen. Diffuse hypoechoic areas are scattered throughout the left kidney. This is compatible with Xanthogranulomatous pyelonephritis No gross abnormality of bladder noted IMPRESSION: Left Xanthogranulomatous pyelonephritis Increased renal echotexture consistent with parenchymal disease Renal Scan: COMPARISON: September 01, 2018 cat scan TECHNIQUE: 10.2 millicuries technetium MDP 3 administered intravenously. Perfusion, concentration and excretion images of the kidneys obtained. 40 milligrams Lasix administered intravenously 10 minutes into the exam. FINDINGS: Left renal peak activity 9.7 minutes. Right renal peak activity 6.9 minutes. Left renal capital T 1/2 equals 11.3 minutes. Right renal capital T 1/2 equals 5.1 minute Left renal activity a 20 minutes equals 48%. Rght renal activity at 20 minutes equals 37% There is relatively symmetric perfusion to each kidney. The concentration of radiotracer within the left kidney is mildly diminished. Mildly delayed excretion left kidney. No hydronephrosis IMPRESSION: Mildly to moderately diminished function of the left kidney. No obstruction ECHO: EF 72% LEFT VENTRICULAR WALL MOTION: NORMAL DOPPLER/COLOR FLOW: NORMAL COMMENTS: NORMAL LEFT VENTRICULAR EJECTION FRACTION. LEFT VENTRICULAR HYPERTROPHY Pelvic US: COMPARISON: [facility] Protocol dated 09/01/2018 FINDINGS: The patient refused transvaginal ultrasound significantly limits the study. The uterus measures 8.2 x 9.0 x 6.1 cm. Endometrial stripe measures 5 mm. A protuberant area is seen in the fundus of the uterus anteriorly measuring 3.6 x 4.0 x 3.2 cm which probably represents a subserosal fibroid. Full details are limited on transabdominal ultrasound. No significant pelvic ascites. Neither ovary well seen likely due to bowel gas shadowing. IMPRESSION: The uterus appears enlarged with a protuberant region in the fundus as detailed, probably representing a fibroid. Full assessment is quite limited as the patient refused transvaginal ultrasound. Neither ovary is well seen due to bowel gas. No pelvic ascites. Medical Problem List: Hypokalemia, Hypomagnesia complicated with left xanthogranulomatous pyelonephritis and acute on chronic renal disease, stage III Diabetes mellitus type 2 Hypertension 11 cm mass near the uterus likely fibroid 1 mm nonobstructing calculus to the left UVJ Iron deficiency anemia Obesity, BMI 43 Brief History of Present Illness: 53-year-old female presented to emergency room with diarrhea, left flank pain. Patient found to have electrolyte abnormalities including hypokalemia and hypomagnesia. She was sent by her kidney specialist to be admitted for further evaluation and treatment. Hospital Course: Patient presented with left flank pain and diarrhea. Patient with history of diabetes type 2, hypertension and chronic renal disease stage III. She was sent to the ER by her head turning machine operator. Patient was evaluated found to have hypokalemia and hypomagnesia. Patient was admitted for replacement and further evaluation. Her workup included CT scan, renal ultrasound, renal scan, pelvic ultrasound, and echocardiogram. Patient found to have left xanthogranulomatous pyelonephritis. Patient was started on antibiotic therapy. So far cultures negative. Urology and nephrology consulted. Further workup by nephrology was done. Electrolytes were replaced. Her condition improved. New medication was added. At discharge patient will continue with Aldactone 25 mg 1 pill twice daily, Klor-Con 20 mEq 1 pill twice daily, and Mag-Ox 400 mg 1 pill twice daily. Patient will follow up with urology and nephrology within 1 week. Recommend to recheck lab-BMP and magnesium level within 1 week to monitor her progress. Urology plans to send the patient to Urology in [place] as the patient will require left nephrectomy. Urology also recommends that the patient follow up with nephrology and consider AV graft fistula as the patient will likely require dialysis in the future. At discharge she will also continue with Augmentin 500 mg daily for 1 month. Recommend to discontinue any in nonsteroidal anti-inflammatories due to her kidney disease. Will also recommend to discontinue metformin due to her kidney disease. Future medication will need to be renally dosed. Patient with type 2 diabetes. Medications have been adjusted. At discharge metformin has been discontinued due to acute on chronic renal disease. Patient will be started on glipizide 5 mg daily. Recommend to maintain blood sugars less than 140 fasting and less than 200 after meals. Further adjustment can be done by her PCP or nephrology. Patient has hypertension. Patient will continue with her medication-Norvasc 10 mg daily and lisinopril 40 mg daily. Recommend to maintain blood pressures less 150/80. Further adjustment can be done nephrology. Patient with iron deficiency anemia. Patient will continue with her iron medication. Recommend to recheck lab-CBC in 1-2 weeks to monitor progress. Patient with 1 mm nonobstructing calculus to the left UVJ. This can be further monitored by urology as an outpatient. Patient found to have 11 cm mass near the uterus. This is likely a fibroid. Patient had pelvic ultrasound. Recommendation is to follow up with gynecology as an outpatient to further evaluate. Patient did not want transvaginal ultrasound during this hospitalization. She will likely require transvaginal ultrasound to further evaluate. Patient with obesity. Lifestyle modification education will be provided. Vital Signs/Physical Exam: Temp Pulse Resp BP Pulse Ox 98.2 F 80 20 178/91 H 98 09/03/18 12:00 09/03/18 12:00 09/03/18 12:00 09/03/18 12:00 09/03/18 12:00 General: Alert, In no apparent distress, Oriented x3, Cooperative HEENT: Atraumatic Neck: Supple Respiratory: Clear to auscultation bilaterally, Normal air movement Cardiovascular: Normal pulses, Regular rate/rhythm Gastrointestinal: Normal bowel sounds, Soft and benign, Non-distended, No tenderness, No masses, No rebound, No guarding Musculoskeletal: No erythema, No tenderness, No warmth Integumentary: No tenderness/swelling, No erythema, No warmth, No cyanosis Neurological: Normal speech, Normal strength at 5/5 x4 extr, Normal tone, Normal affect Laboratory Data at Discharge: WBC 8.6 K/uL (4.3-10.9) 09/03/18 08:59 Hgb 9.4 g/dL (12.0-15.0) L 09/03/18 08:59 Hct 28.8 % (36.0-45.0) L 09/03/18 08:59 Plt Count 464 K/uL (152-406) H 09/03/18 08:59 Sodium 140 mmol/L (136-145) 09/03/18 03:48 Potassium 3.5 mmol/L (3.5-5.1) 09/03/18 13:00 BUN 11 mg/dL (7-18) 09/03/18 03:48 Creatinine 1.53 mg/dL (0.55-1.3) H 09/03/18 03:48 Glucose 195 mg/dL (74-106) H 09/03/18 03:48 Phosphorus 2.1 mg/dL (2.5-4.9) L 09/01/18 17:55 Magnesium 1.7 mg/dL (1.8-2.4) L 09/03/18 03:48 Total Bilirubin 0.2 mg/dL (0.2-1.0) 09/01/18 01:20 AST 33 U/L (15-37) 09/01/18 01:20 ALT 20 U/L (12-78) 09/01/18 01:20 Alkaline Phosphatase 56 U/L (45-117) 09/01/18 01:20 Home Medications: Amlodipine [Norvasc*] 10 mg PO DAILY 09/01/18 Atorvastatin Calcium [Lipitor*] 20 mg PO BEDTIME 09/01/18 Folic Acid [FA-8] 0.8 mg PO DAILY 09/01/18 Iron Cr 800 iu PO DAILY 09/01/18 Lisinopril [Zestril] 40 mg PO DAILY 09/01/18 Amox/Clavulanate [Augmentin 500-125 mg Tab*] 500 mg PO DAILY #30 tab 09/03/18 Magnesium Oxide [Mag 0X Tab] 400 mg PO BID #60 tab 09/03/18 Potassium Chloride [Klor-Con M20] 20 meq PO BID #60 tab.er.prt 09/03/18 Spironolactone [Aldactone*] 25 mg PO BID #60 tab 09/03/18 glipiZIDE [Glipizide] 5 mg PO DAILY #30 tablet 09/03/18 New Medications: Amox/Clavulanate [Augmentin 500-125 mg Tab*] 500 mg PO DAILY #30 tab glipiZIDE [Glipizide] 5 mg PO DAILY #30 tablet Magnesium Oxide [Mag 0X Tab] 400 mg PO BID #60 tab Potassium Chloride [Klor-Con M20] 20 meq PO BID #60 tab.er.prt Spironolactone [Aldactone*] 25 mg PO BID #60 tab Patient Discharge Instructions: 1. Patient to establish care with a PCP to continue her care. 2. Patient presented with left flank pain and diarrhea. Patient with history of diabetes type 2, hypertension and chronic renal disease stage III. She was sent to the ER by her head turning machine operator. Patient was evaluated found to have hypokalemia and hypomagnesia. Patient was admitted for replacement and further evaluation. Her workup included CT scan, renal ultrasound, renal scan, pelvic ultrasound, and echocardiogram. Patient found to have left xanthogranulomatous pyelonephritis. Patient was started on antibiotic therapy. So far cultures negative. Urology and nephrology consulted. Further workup by nephrology was done. Electrolytes were replaced. Her condition improved. New medication was added. At discharge patient will continue with Aldactone 25 mg 1 pill twice daily, Klor-Con 20 mEq 1 pill twice daily, and Mag-Ox 400 mg 1 pill twice daily. Patient will follow up with urology and nephrology within 1 week. Recommend to recheck lab-BMP and magnesium level within 1 week to monitor her progress. Urology plans to send the patient to Urology in [place] as the patient will require left nephrectomy. Urology also recommends that the patient follow up with nephrology and consider AV graft fistula as the patient will likely require dialysis in the future. At discharge she will also continue with Augmentin 500 mg daily for 1 month. Recommend to discontinue any in nonsteroidal anti-inflammatories due to her kidney disease. Will also recommend to discontinue metformin due to her kidney disease. Future medication will need to be renally dosed. 3. Patient with type 2 diabetes. Medications have been adjusted. At discharge metformin has been discontinued due to acute on chronic renal disease. Patient will be started on glipizide 5 mg daily. Recommend to maintain blood sugars less than 140 fasting and less than 200 after meals. Further adjustment can be done by her PCP or nephrology. 4. Patient has hypertension. Patient will continue with her medication-Norvasc 10 mg daily and lisinopril 40 mg daily. Recommend to maintain blood pressures less 150/80. Further adjustment can be done nephrology. 5. Patient with iron deficiency anemia. Patient will continue with her iron medication. Recommend to recheck lab-CBC in 1-2 weeks to monitor progress. 6. Patient with 1 mm nonobstructing calculus to the left UVJ. This can be further monitored by urology as an outpatient. 7. Patient found to have 11 cm mass near the uterus. This is likely a fibroid. Patient had pelvic ultrasound. Recommendation is to follow up with gynecology as an outpatient to further evaluate. Patient did not want transvaginal ultrasound during this hospitalization. She will likely require transvaginal ultrasound to further evaluate. 8. Patient with obesity. Lifestyle modification education will be provided. Diet: ADA Activity: Fall precautions Time spent managing pt's care (in minutes): 55
--- NOTE | 2018-09-03 14:47 | PN ---
Date of Progress Note: 09/03/2018 Ms. Bardales was seen yesterday by Dr. Garcia for hypokalemia, cardiac clearance for nephrectomy for a renal mass. We were awaiting the results of her echoes. The echocardiogram was done yesterday even ing, which showed normal ejection fraction, no wall motion abnormalities. She has hypertension, dysl ipidemia, and diabetes that are fairly well controlled. From our standpoint, she is at low risk for perioperative mortality. We will be available for questions if the need arises. LEATHA/MARTIN Voice ID: [id number] Report ID: [id number]
--- NOTE | 2018-09-03 17:50 | CON ---
History Of Present Illness: The patient is a 53-year-old female coming in with medical history of di abetes mellitus, chronic kidney disease, hypertension. The patient was seen in the Nephrology Clinic and was told to go to the emergency room for low potassium. The patient denies any fever, headache, nausea, vomiting, chest pain, abdominal pain, constipation, or diarrhea. The patient has significan t past medical history of hypertension, left eye keratoconus, anxiety, chronic kidney disease. The p atient was also found to have kidney conditions xanthogranulomatous pyelonephritis, for which she is getting Augmentin. The patient is also found to have renal calculi. Denies any headache, nausea, vo miting, chest pain, abdominal pain, constipation, or diarrhea. Past Medical History: As per HPI. Social History: Nonsmoker, nondrinker. Family History: Noncontributory. Current Medication: Includes Augmentin. See [facility] for other medication. Allergies: ASPIRIN. Review of Systems: A 10-point review was performed. Physical Examination: General: This is a 53-year-old female, lying in bed, not in any acute cardiopulmonary distress. Vital Signs: Temperature 98, pulse 80, respirations 18, blood pressure 178/91. HEENT: Unremarkable. Neck: Supple. Lungs: Basal crackles. Heart: S1, S2. Regular. Abdomen: Soft, nontender. Bowel sounds present. Extremities: Trace edema. Laboratory Data: Shows WBC 8.6, hemoglobin 9.3, platelets are 464. Chemistry shows sodium 140, pota ssium 3.1, chloride 105, bicarb 28, BUN 11, creatinine 1.5, glucose is 195. Micro data: Urine cultu res, mixed ammy. CT scan of the abdomen shows the patient has left xanthogranulomatous pyelonephrit is and 1 mm nonobstructive calculus in the left UVJ, 11 cm mass which abuts the uterine fundus appear s slightly enlarge. Assessment And Plan: Left-sided xanthogranulomatous pyelonephritis. The patient is currently being treated with Augmentin and was instructed by the hospitalist to be transferred if needed to [facility] in [place]. The patient to follow up with urologist for possible resection of the left kidney. Continue antibiotic and supportive care. Return to the emergency room if fevers or pain increases. We will follow the patient as needed. Thank you Dr. Rehman for consult. NF/MODL Voice ID: [id number] Report ID: [id number]
[2018-09-03] MEDS ORDERED: AMOX/K CLAV 500 MG TAB PO SCH (21:00)
--- NOTE | 2018-09-04 02:28 | PN ---
Date of Progress Note: 09/03/2018 Chief Complaint: [id number]-[id number] kidney injury. The patient was found to have elevated BUN and cre atinine. She has history of chronic kidney disease stage 3. She was found to have hypomagnesemia, h ypokalemia, received replacement. The patient underwent CT scan and ultrasound. It showed pyelonephritis. The patient will start antibiotics and was consulted by urologist. Review of Systems: Denies fever, chills. Physical Examination: Lungs: Clear to auscultation bilaterally. Heart: S1, S2. Abdomen: Soft, benign. Extremities: Slight edema. Impression And Plan: 1.Pyelonephritis. The patient will take Augmentin. The patient will follow up with Urology and Nep hrology outpatient. 2.Hypokalemia, replaced. Monitor electrolytes. 3.Hypomagnesemia. The patient received magnesium sulfate IV. 4.Cngrw-eh-fhcjwmo kidney injury. Renal function slightly improved. Monitor electrolytes and renal panel. Avoid nonsteroidal anti-inflammatory medication. LANA/MARTIN Voice ID: [id number] Report ID: [id number]
== END 2018-09-03 16:40 | disposition home or self-care (01) | DRG 683 ==
LOC: ER 00:33 → ERHOLD 02:50 → 4TH 03:46 → OBSVTOIN 09-02 08:23
PROVIDERS: ADMIT Internal Medicine; ATTEND Family Medicine
DX: N17.9 Acute kidney failure, unspecified (principal); N20.1 Calculus of ureter; Z68.41 Body mass index [BMI] 40.0-44.9, adult; N10 Acute pyelonephritis; N11.8 Other chronic tubulo-interstitial nephritis; I12.9 Hypertensive chronic kidney disease with stage 1 through stage 4 chronic kidney disease, or unspecified chronic kidney disease; E11.22 Type 2 diabetes mellitus with diabetic chronic kidney disease; N18.3 Chronic kidney disease, stage 3 (moderate); D25.9 Leiomyoma of uterus, unspecified; D50.9 Iron deficiency anemia, unspecified; E66.9 Obesity, unspecified; E87.6 Hypokalemia; E83.42 Hypomagnesemia; Z79.84 Long term (current) use of oral hypoglycemic drugs; F41.9 Anxiety disorder, unspecified; Z87.891 Personal history of nicotine dependence; H18.602 Keratoconus, unspecified, left eye; K21.9 Gastro-esophageal reflux disease without esophagitis; E78.5 Hyperlipidemia, unspecified; Z91.19 Patient's noncompliance with other medical treatment and regimen; N29 Other disorders of kidney and ureter in diseases classified elsewhere
CPT/HCPCS: 36415; 74176; 76377; 76770; 76856; 78707; 80048; 80076; 80307; 81001; 82040; 82043; 82088; 82533; 82570; 82607; 82728; 82962; 83540; 83735; 83880; 83935; 84100; 84132; 84145; 84244; 84443; 84466; 84550; 85025; 87086; 87088; 93005; 93306; 96365; 96368; 99285; A9562; G0378; G0379; J0360; J0696; J1650; J1940; J3475; J7030

== ENCOUNTER 2019-06-29 16:55 | Emergency (ER) | payer OTHER ==
[2019-06-29 17:52] LABS: Basophils % 0.4 % (0-1.3); Hematocrit 21.3 % (36.0-45.0); Lymphocytes % 24.4 % (15.3-44.8); MPV 7.8 fL (7.6-11.3)
[2019-06-29] MEDS ORDERED: NA CHLORIDE 0.9% 1,000 ML ONE (17:54)
[2019-06-29 18:03] LABS: Protime INR 1.18
[2019-06-29 18:05] LABS: ALT/SGPT 12 U/L (12-78); AST/SGOT 18 U/L (15-37); Albumin 2.1 g/dL (3.4-5.0); Alkaline Phosphatase 75 U/L (45-117); BUN Blood Urea Nitrogen 17 mg/dL (7-18); Bicarbonate 24 mmol/L (21-32); Bilirubin Direct < 0.1 mg/dL (0-0.2); Glucose Level 102 mg/dL (74-106); Lipase 107 U/L (73-393); Potassium 4.2 mmol/L (3.5-5.1); Protein, Total 11.1 g/dL (6.4-8.2); Sodium Level 132 mmol/L (136-145)
[2019-06-29 18:07] LABS: Bilirubin Total < 0.1 mg/dL (0.2-1.0)
[2019-06-29 19:02] LABS: Urine Specific Gravity 1.025 (1.005-1.030)
[2019-06-29 19:02] LABS: Urine Amorphous Sediment 1+ /HPF (NONE SEEN); Urine Bacteria 20-50 /HPF (<20); Urine Culture Reflex Order REFLEXED; Urine Mucus 2+ /HPF (NONE SEEN)
[2019-06-29 19:03] LABS: Urine Blood 2+ (NEG); Urine Glucose NEGATIVE (NEG); Urine Protein 3+ (NEG); Urine Specific Gravity 1.025 (1.005-1.030)
--- NOTE | 2019-06-29 19:12 | RAD REPORT ---
EXAM DESCRIPTION: RAD - Chest Single View - 06/29/2019 6:03 pm CLINICAL HISTORY: Hypertension, abdominal discomfort, low hemoglobin COMPARISON: October 2013 TECHNIQUE: AP portable chest image was obtained 1756 hours . FINDINGS: Lungs are clear. Heart and vasculature are normal. No measurable pleural effusion and no p neumothorax. No acute bony abnormality seen. No acute aortic findings suspected. IMPRESSION: No acute cardiopulmonary process. No significant interval change.
[2019-06-29] MEDS ORDERED: CEFTRIAXONE/SWI 1gm 2 GM/20 ML SYR ONE (20:18)
[2019-06-29 20:42] LABS: Magnesium 1.9 mg/dL (1.8-2.4); NT PRO-BNP 904 pg/mL (<125); Troponin (Emerg Dept Use Only) < 0.02 ng/mL (0.0-0.045)
[2019-06-29] MEDS ORDERED: NA CHLORIDE 0.9% 250 ML ONE (20:59)
--- NOTE | 2019-06-29 21:09 | EDPHYS ---
Physician Documentation [facility] Name: Denise Bardales Age: 53 yrs Sex: Female : 1965 Arrival Date: 06/29/2019 Time: 16:59 Bed 28 Private MD: PRERNA RAO ED Physician Josef Bailey HPI: 06/29 21:00 This 53 yrs old Black Female presents to ER via Ambulatory with complaints of bleeding. wa 21:00 sent by PMD for low Hb. pt denies complaints at this time. states she's known she's wa anemic for at least 2-3 years but no one seem to know where she's bleeding from. Denies abd pain, loose and or bloody stools. Onset: The symptoms/episode began/occurred noted on her blood work with PMD. Severity of symptoms: At their worst the symptoms were moderate in the emergency department the symptoms are unchanged. The patient has experienced similar episodes in the past, chronically. The patient has been recently seen by a physician: the patient's primary care provider. [facility] has appt with a "blood specialist"pending. 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 - Social history:: Smoking status: Patient/guardian denies using tobacco, but has a distant history of tobacco abuse. - Ebola Screening: : Patient denies exposure to infectious person Patient denies travel to an Ebola-affected area in the 21 days before illness onset. - Family history:: not pertinent. - Hospitalizations: : No recent hospitalization is reported. ROS: 21:03 Constitutional: Negative for fever, chills, and weight loss, Eyes: Negative for injury, wa pain, redness, and discharge, ENT: Negative for injury, pain, and discharge, Neck: Negative for injury, pain, and swelling, Cardiovascular: Negative for chest pain, palpitations, and edema, Respiratory: Negative for shortness of breath, cough, wheezing, and pleuritic chest pain, Abdomen/GI: Negative for abdominal pain, nausea, vomiting, diarrhea, and constipation, Back: Negative for injury and pain, : Negative for injury, bleeding, discharge, and swelling, MS/Extremity: Negative for injury and deformity, Skin: Negative for injury, rash, and discoloration, Neuro: Negative for headache, weakness, numbness, tingling, and seizure, Psych: Negative for depression, anxiety, suicide ideation, homicidal ideation, and hallucinations. 21:03 All other systems are negative. Exam: 21:03 Constitutional: This is a well developed, well nourished patient who is awake, alert, wa and in no acute distress. Head/Face: Normocephalic, atraumatic. Neck: Trachea midline, no thyromegaly or masses palpated, and no cervical lymphadenopathy. Supple, full range of motion without nuchal rigidity, or vertebral point tenderness. No Meningismus. Chest/axilla: Normal chest wall appearance and motion. Nontender with no deformity. No lesions are appreciated. Cardiovascular: Regular rate and rhythm with a normal S1 and S2. No gallops, murmurs, or rubs. Normal PMI, no JVD. No pulse deficits. Respiratory: Lungs have equal breath sounds bilaterally, clear to auscultation and percussion. No rales, rhonchi or wheezes noted. No increased work of breathing, no retractions or nasal flaring. Abdomen/GI: Soft, non-tender, with normal bowel sounds. No distension or tympany. No guarding or rebound. No evidence of tenderness throughout. Back: No spinal tenderness. No costovertebral tenderness. Full range of motion. MS/ Extremity: Pulses equal, no cyanosis. Neurovascular intact. Full, normal range of motion. Neuro: Awake and alert, GCS 15, oriented to person, place, time, and situation. Cranial nerves II-XII grossly intact. Motor strength 5/5 in all extremities. Sensory grossly intact. Cerebellar exam normal. Normal gait. Psych: Awake, alert, with orientation to person, place and time. Behavior, mood, and affect are within normal limits. 21:03 Eyes: Conjunctiva: pale. 21:03 Skin: Appearance: Color: pale. Vital Signs: 17:19 BP 145 / 85; Pulse 123; Resp 19; Temp 98.8(TE); Pulse Ox 100% on R/A; Weight 92.53 kg; ss Height 5 ft. 3 in. (160.02 cm); Pain 0/10; 17:43 BP 128 / 80; Pulse 105; Resp 18; Pulse Ox 100% on R/A; mg2 19:56 BP 122 / 77; Pulse 96; Resp 18; Pulse Ox 100% on R/A; mg2 21:07 BP 104 / 59; Pulse 79; Resp 18; Pulse Ox 100% on R/A; mg2 22:15 BP 117 / 65; Pulse 81; Resp 18; Temp 98.1; Pulse Ox 100% on R/A; mg2 23:15 BP 120 / 60; Pulse 78; Resp 18; Temp 98.1; Pulse Ox 100% on R/A; mg2 17:19 Body Mass Index 36.14 (92.53 kg, 160.02 cm) ss MDM: 17:18 Patient medically screened. wa 21:04 Differential Diagnosis refused rectal exam for stool guaiac. states does not want to wa stay. has no complaints. will check labs and reassess. Data reviewed: vital signs, nurses notes. 21:06 Test interpretation: by ED physician or midlevel provider: labs noted for anemia hb wa 7.0., UTI, renal insuff. . ED course: discussed findings. pt adamant on admit. will transfuse 1 unit and d/c. pt not acute bleeding. refused rectal here however. has close f/u with PMD and heme. 21:07 ED course: Abx given for UTI. pr 06/29 17:27 Order name: Basic Metabolic Panel [facility] [place] 06/[place] 17:27 Order name: CBC with Diff mg2 06/29 17:27 Order name: Creatinine for Radiology [facility] [place] 06/29 17:27 Order name: Hepatic Function [facility] [place] 06/29 17:27 Order name: Lipase mg2 06/29 17:27 Order name: TS mg2 06/29 17:42 Order name: Urine Microscopic Only pr 06/29 17:43 Order name: Magnesium; Complete Time: 21:05 06/29 17:43 Order name: NT PRO-BNP; Complete Time: 21:05 06/29 17:43 Order name: PT-INR 06/29 17:43 Order name: Troponin (emerg Dept Use Only); Complete Time: 21:05 pr 06/29 17:56 Order name: CBC with Automated Diff; Complete Time: 19:58 EDMS 06/29 18:05 Order name: Creatinine (Radiology Only); Complete Time: 19:58 EDMS 06/29 18:09 Order name: Basic Metabolic Panel; Complete Time: 19:58 EDMS 06/29 17:43 Order name: XRAY Chest (1 view) pr 06/29 18:09 Order name: Liver (Hepatic) Function; Complete Time: 19:58 EDMS 06/29 18:09 Order name: Lipase; Complete Time: 19:58 EDMS 06/29 18:09 Order name: Protime (+INR); Complete Time: 19:58 EDMS 06/29 18:37 Order name: Urine Dipstick--Ancillary (enter results) 06/29 18:38 Order name: Urine --Ancillary (enter results) 06/29 19:03 Order name: Urine Microscopic Only; Complete Time: 19:58 EDAL 06/29 19:03 Order name: Urine Dipstick-Ancillary; Complete Time: 19:58 EDAL 06/29 19:03 Order name: Urine --Ancillary; Complete Time: 19:58 EDAL 06/29 19:04 Order name: Type and Screen [facility] 06/29 19:19 Order name: RAD; Complete Time: 19:58 EDAL 06/29 19:21 Order name: ABO/RH no charge; Complete Time: 19:58 EDAL 06/29 20:17 Order name: Packed Rbc Leukored As-1 pr 06/29 20:54 Order name: Urine Culture [facility] 06/29 21:25 Order name: Packed RBCs (Additional Unit) [facility] 06/29 17:27 Order name: IV Saline Lock; Complete Time: 17:42 mg2 06/29 17:27 Order name: Labs collected and sent; Complete Time: 17:42 mg2 06/29 17:42 Order name: Urine Dipstick-Ancillary (obtain specimen); Complete Time: 18:34 pr 06/29 17:43 Order name: EKG; Complete Time: 17:44 pr 06/29 17:43 Order name: Cardiac monitoring; Complete Time: 17:50 pr 06/29 17:43 Order name: EKG - Nurse/Tech; Complete Time: 18:05 pr 06/29 17:43 Order name: O2 Sat Monitoring; Complete Time: 17:50 pr 06/29 21:03 Order name: Transfuse: 1 unit PRBC; Complete Time: 21:23 mg2 Administered Medications: 17:50 Drug: NS 0.9% 1000 ml Route: IV; Rate: 1 bolus; Site: left forearm; mg2 18:50 Follow up: Response: No adverse reaction; IV Status: Completed infusion; IV Intake: mg2 1000ml 20:43 Drug: Rocephin - (cefTRIAXone) 2 grams Route: IVPB; Infused Over: 30 mins; Site: left mg2 forearm; 21:23 Follow up: Response: No adverse reaction; IV Status: Completed infusion mg2 Disposition: 06/29/19 21:08 Discharged to Home. Impression: Anemia, UTI, renal insufficiency. - Condition is Stable. - Discharge Instructions: Anemia, Nonspecific, Urinary Tract Infection, Adult, [id number], Chronic Kidney Disease, Adult, [id number]. - Prescriptions for Keflex 500 mg Oral Capsule - take 1 capsule by ORAL route every 12 hours for 5 days; 10 capsule. - Medication Reconciliation Form, Thank You Letter, Antibiotic Education, Prescription Opioid Use form. - Follow up: Private Physician; When: 1 - 2 days; Reason: Recheck today's complaints. - Problem is new. - Symptoms have improved. - Notes: follow up with your doctors for anemia. return to ER for shortness of breath or any worrisome concerns you may have Signatures: Dispatcher [employer] [facility] Sandra Moreira RN RN Josef Bailey MD MD pr Jack Singleton RN RN mg2 Corrections: (The following items were deleted from the chart) 21:03 20:17 Blood Transfusion Consent ordered. pr mg2 23:34 21:08 06/29/2019 21:08 Discharged to Home. Impression: Anemia; UTI; renal mg2 insufficiency. Condition is Stable. Forms are Medication Reconciliation Form, Thank You Letter, Antibiotic Education, Prescription Opioid Use. Follow up: Private Physician; When: 1 - 2 days; Reason: Recheck today's complaints. Problem is new. Symptoms have improved. pr
--- NOTE | 2019-06-29 21:09 | ER ---
Nurse's Notes [facility] Name: Denise Bardales Age: 53 yrs Sex: Female : 1965 Arrival Date: 06/29/2019 Time: 16:59 Bed 28 Private MD: PRERNA RAO Diagnosis: Anemia;UTI;renal insufficiency Presentation: 06/29 17:16 Presenting complaint: Patient states: Instructed by PCP to come to ER for evaluation of ss low Hgb. Hgb was reportedly 7.2 as of yesterday after having labs drawn. Pt reports intermittent abd discomfort since last admission in February of 2019. Pt states, "they still don't know where I'm bleeding from.". Transition of care: patient was not received from another setting of care. Onset of symptoms is unknown. Risk Assessment: Do you want to hurt yourself or someone else? Patient reports no desire to harm self or others. Initial Sepsis Screen: Does the patient meet any 2 criteria? HR > 90 bpm. Does the patient have a suspected source of infection? No. Patient's initial sepsis screen is negative. Care prior to arrival: None. 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 - Social history:: Smoking status: Patient/guardian denies using tobacco, but has a distant history of tobacco abuse. - Ebola Screening: : Patient denies exposure to infectious person Patient denies travel to an Ebola-affected area in the 21 days before illness onset. - Family history:: not pertinent. - Hospitalizations: : No recent hospitalization is reported. Screenin:44 Abuse screen: Denies threats or abuse. Denies injuries from another. Nutritional mg2 screening: No deficits noted. Tuberculosis screening: No symptoms or risk factors identified. Fall Risk IV access (20 points). Assessment: 18:06 General: Appears in no apparent distress. comfortable, Behavior is calm, cooperative. mg2 Pain: Complains of pain in abdomen. Pain: Quality of pain is described as discomfort. Neuro: Level of Consciousness is awake, alert, obeys commands, Oriented to person, place, time, situation. Cardiovascular: Capillary refill < 3 seconds Patient's skin is warm and dry. Respiratory: Airway is patent Respiratory effort is even, unlabored, Respiratory pattern is regular, symmetrical. GI: No signs and/or symptoms were reported involving the gastrointestinal system. GI: Reports rectal bleeding, hemorrhoids. : No signs and/or symptoms were reported regarding the genitourinary system. EENT: No signs and/or symptoms were reported regarding the EENT system. Derm: Skin is intact, is healthy with good turgor, Skin is pink, warm \\T\\ dry. normal. Musculoskeletal: Circulation, motion, and sensation intact. Capillary refill. 19:56 Reassessment: Patient appears in no apparent distress at this time. Patient and/or mg2 family updated on plan of care and expected duration. Pain level reassessed. Patient is alert, oriented x 3, equal unlabored respirations, skin warm/dry/pink. 21:15 Reassessment: blood transfusion started. mg2 21:30 Reassessment: patient to be discharged after completing the bag of blood. patient is mg2 aware. 22:30 Reassessment: Patient appears in no apparent distress at this time. Patient denies pain mg2 at this time. 23:15 Reassessment: blood transfusion completed. mg2 Vital Signs: 17:19 BP 145 / 85; Pulse 123; Resp 19; Temp 98.8(TE); Pulse Ox 100% on R/A; Weight 92.53 kg; ss Height 5 ft. 3 in. (160.02 cm); Pain 0/10; 17:43 BP 128 / 80; Pulse 105; Resp 18; Pulse Ox 100% on R/A; mg2 19:56 BP 122 / 77; Pulse 96; Resp 18; Pulse Ox 100% on R/A; mg2 21:07 BP 104 / 59; Pulse 79; Resp 18; Pulse Ox 100% on R/A; mg2 22:15 BP 117 / 65; Pulse 81; Resp 18; Temp 98.1; Pulse Ox 100% on R/A; mg2 23:15 BP 120 / 60; Pulse 78; Resp 18; Temp 98.1; Pulse Ox 100% on R/A; mg2 17:19 Body Mass Index 36.14 (92.53 kg, 160.02 cm) ED Course: 16:59 Patient arrived in ED. am2 17:00 PRERNA RAO is Private Physician. am2 17:14 Jack Singleton, RN is Primary Nurse. mg2 17:18 Josef Bailey MD is Attending Physician. ri 17:19 Triage completed. 17:19 Arm band placed on left wrist. 17:43 No provider procedures requiring assistance completed. Inserted saline lock: 20 gauge mg2 in left forearm, using aseptic technique. Blood collected. 18:08 Patient has correct armband on for positive identification. mg2 23:33 IV discontinued, intact, bleeding controlled, No redness/swelling at site. Pressure mg2 dressing applied. Administered Medications: 17:50 Drug: NS 0.9% 1000 ml Route: IV; Rate: 1 bolus; Site: left forearm; mg2 18:50 Follow up: Response: No adverse reaction; IV Status: Completed infusion; IV Intake: mg2 1000ml 20:43 Drug: Rocephin - (cefTRIAXone) 2 grams Route: IVPB; Infused Over: 30 mins; Site: left mg2 forearm; 21:23 Follow up: Response: No adverse reaction; IV Status: Completed infusion mg2 Medication: 21:29 Blood products: PRBCs X 1 unit given. See transfusion record. mg2 Intake: 18:50 IV: 1000ml; Total: 1000ml. mg2 Outcome: 21:08 Discharge ordered by . ri 23:34 Discharged to home ambulatory. mg2 23:34 Condition: stable 23:34 Discharge instructions given to patient, Instructed on discharge instructions, follow up and referral plans. medication usage, Demonstrated understanding of instructions, follow-up care, medications, Prescriptions given X 1. 23:34 Patient left the ED. mg2 Signatures: Sandra Moreira RN RN Patience Funez 2 Josef Bailey MD MD wa Gardose, Michele, RN RN mg2 Corrections: (The following items were deleted from the chart) 23:32 23:31 Reassessment: Patient appears in no apparent distress at this time. Patient mg2 denies pain at this time. mg2
[2019-06-30 01:43] VITALS: O2SAT 100
[2019-06-30 01:49] VITALS: TEMP 98.1
[2019-06-30 01:51] VITALS: BP 120/60
--- NOTE | 2019-06-30 07:52 | EKG ---
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
== END 2019-06-29 23:34 | disposition home or self-care (01) ==
LOC: ER 16:55
DX: D64.9 Anemia, unspecified (principal); N39.0 Urinary tract infection, site not specified; N28.9 Disorder of kidney and ureter, unspecified; I10 Essential (primary) hypertension; E11.9 Type 2 diabetes mellitus without complications; Z88.6 Allergy status to analgesic agent
CPT/HCPCS: 96365; 96361; 93005; 87088; 85025; 87086; 80048; 36415; 86900; 83735; 86850; 81025; 85610; 86901; 80076; 87077; 87186; 84484; 83690; 83880; 71045; 36430; 99284; J0696; P9016; J7030 ×2; 81003; 81015